=== PATIENT | female | born 1950 | race African-American/Black ===

== ENCOUNTER 2018-01-08 18:39 | Emergency (ER) | payer MEDICARE, OTHER ==
[~2018-01-08] VITALS: Ht 149.9 cm; Wt 59.0 kg
--- NOTE | 2018-01-08 20:14 | Diagnostic Imaging Report ---
SHOULDER 2+VW LT -HOPD - 3 views HISTORY: Pain COMPARISON: None available. FINDINGS: Bones: No acute displaced fracture. Osseous alignment is within normal limits. Joints: The joint spaces are well-maintained. Soft tissues: The soft tissues appear unremarkable. IMPRESSION: No acute fracture or dislocation of the left shoulder. Signed by: Dr. Rick Yadav MD on 01/08/2018 8:11 PM
== END 2018-01-08 21:00 | disposition home or self-care (01) ==
LOC: FSED 18:39
DX: S40.012A Contusion of left shoulder, initial encounter (principal); W18.39XA Other fall on same level, initial encounter; Y93.F9 Activity, other caregiving; Y99.0 Civilian activity done for income or pay
CPT/HCPCS: 99282